=== PATIENT | female | born 1990 | race Caucasian/White ===

== ENCOUNTER 2016-09-23 12:29 | Outpatient (CLI) | payer MEDICAID | END 2016-09-23 12:30 | disposition critical access hospital (66) | DX: R42 Dizziness and giddiness (principal); N93.9 Abnormal uterine and vaginal bleeding, unspecified | CPT/HCPCS: A0425; A0427 ==

== ENCOUNTER 2016-09-23 12:47 | Emergency (ER) | payer MEDICAID ==
[2016-09-23] MEDS ORDERED: SODIUM CHLORIDE 0.9% 1,000 ML IV ONE (13:27)
== END 2016-09-23 15:20 | disposition home or self-care (01) ==
DX: N93.8 Other specified abnormal uterine and vaginal bleeding (principal)